=== PATIENT | female | born 1990 | race African-American/Black ===

== ENCOUNTER 2018-10-03 23:34 | Emergency (ER) | payer OTHER ==
[~2018-10-03] VITALS: Ht 170.2 cm; Wt 91.0 kg
[2018-10-04] MEDS ORDERED: ACETAMINOPHEN 325MG TABLET PO ONE (03:00)
[2018-10-04 04:49] VITALS: BP 100/60
== END 2018-10-04 04:50 | disposition home or self-care (01) ==
LOC: ER 23:34
DX: S16.1XXA Strain of muscle, fascia and tendon at neck level, initial encounter (principal); M25.512 Pain in left shoulder; M25.532 Pain in left wrist; F17.200 Nicotine dependence, unspecified, uncomplicated; V49.09XA Driver injured in collision with other motor vehicles in nontraffic accident, initial encounter; Y93.89 Activity, other specified; Y92.89 Other specified places as the place of occurrence of the external cause; Y99.8 Other external cause status
CPT/HCPCS: 70486; 71101; 73030; 73100; 81025; 99284